=== PATIENT | female | born 1960 | race Caucasian/White ===

== ENCOUNTER 2017-10-09 21:53 | Inpatient (IN) | payer MEDICAID ==
[~2017-10-09] VITALS: Ht 157.5 cm; Wt 63.0 kg
[2017-10-09 21:55] VITALS: BP 125/79
--- NOTE | 2017-10-09 22:00 | NUR ---
TO LOBBY AMB, VS STABLE A/W FOR BED, EUGENIA NOTED
--- NOTE | 2017-10-10 03:11 | NUR ---
Patient ambulated to OF. RN evaluating patient.
--- NOTE | 2017-10-10 03:35 | NUR ---
PATIENT AMBULATED TO BED 10
[2017-10-10] MEDS ORDERED: ONDANSETRON 4 MG/2 ML VIAL IVP ONE (03:55)
--- NOTE | 2017-10-10 04:10 | NUR ---
56Y/F PRESENTS TO ER PATIENT PRESENTS TO ED WITH ABD PAIN . PT STATES SHE HAS HAD PAIN X3 YEARS . SKIN IS PINK/WARM/DRY; AAOX4 WITH EVEN AND STEADY GAIT; LUNGS CLEAR BL; HR EVEN AND REGULAR; PT DENIES ANY FEVER, CP, SOB; PATIENT STATES PAIN OF 10/10 AT THIS TIME; VSS; PATIENT POSITIONED FOR COMFORT; HOB ELEVATED; BEDRAILS UP X2; BED DOWN. ER MD MADE AWARE OF PT STATUS.
[2017-10-10 04:24] LABS: BASOPHILS # (AUTO) 0.1 K/uL (0.00-0.22); BASOPHILS % (AUTO) 1.3 % (0.0-2.0); EOSINOPHILS # (AUTO) 0.1 K/uL (0-0.4); EOSINOPHILS % (AUTO) 0.7 % (0.0-4.0); HEMATOCRIT 38.5 % (36-48); HEMOGLOBIN 12.9 g/dL (12.0-16.0); LYMPHOCYTES # (AUTO) 0.7 K/uL (2.5-16.5); LYMPHOCYTES % (AUTO) 9.3 % (20.5-51.1); MEAN CORPUSCULAR HEMOGLOBIN 31 pg (27-31); MEAN CORPUSCULAR HGB CONC 34 g/dL (33-37); MEAN CORPUSCULAR VOLUME 91 fL (80-94); MONOCYTES # (AUTO) 0.3 K/uL (0.8-1.0); MONOCYTES % (AUTO) 4.3 % (1.7-9.3); NEUTROPHILS # (AUTO) 6.8 K/uL (1.8-7.7); PLATELET COUNT (AUTO) 129 K/uL (140-450); RED BLOOD CELL COUNT(AUTO) 4.23 MIL/uL (4.20-5.40); RED CELL DISTRIBUTION WIDTH 12.5 % (11.6-13.7); WHITE BLOOD COUNT (AUTO) 7.9 K/uL (4.8-10.8)
[2017-10-10 04:27] LABS: APPEARANCE,URINE CLOUDY (CLEAR); BILIRUBIN,URINE NEGATIVE (NEGATIVE); BLOOD, URINE NEGATIVE (NEGATIVE); COLOR,URINE YELLOW (YELLOW); LEUKOCYTE ESTERASE ,URINE NEGATIVE (NEGATIVE); NITRITE, URINE POSITIVE (NEGATIVE); PH,URINE 8.5 (5.0-9.0); UGLUCOSE NEGATIVE (NEGATIVE)
[2017-10-10 04:40] LABS: RBC,URINE 0-5 (RARE) /HPF (0-5)
[2017-10-10 04:41] LABS: CARBON DIOXIDE 25.1 mmol/L (21-32); CREATININE 0.8 mg/dL (0.6-1.3); POTASSIUM 4.1 mmol/L (3.5-5.1)
[2017-10-10 04:46] LABS: ALBUMIN 3.7 g/dL (3.4-5.0); NEUTROPHILS % (AUTO) 84.4 % (42.2-75.2); TOTAL BILIRUBIN 0.4 mg/dL (0.0-1.0)
--- NOTE | 2017-10-10 06:10 | NUR ---
PT SLEEPING IN BED, COMFORT NEEDS MET, WILL CONTINUE TO MONITOR.
--- NOTE | 2017-10-10 07:05 | NUR ---
PT APPEARS TO BE RESTING COMFORTABLY IN BED; RR EVEN/UNLABORED; POSITIONED FOR COMFORT; WILL CONTINUE TO MONITOR.
[2017-10-10] MEDS ORDERED: ACETAMINOPHEN 325 MG TAB PO PRN (07:20)
--- NOTE | 2017-10-10 08:20 | NUR ---
THIS 56 YEARS OLD FEMALE RECEIVED FROM ER WITH THE DIAGNOSIS OF UTI, POSSIBLE CHOLECYSTITIS. RECEIVED REPORT FROM ER NURSE TREV. PT A/O X4. ABLE TO MAKE NEEDS KNOWN. NO ACUTE DISTRESS NOTED. ABLE TO AMBULATE AND USE BEDSIDE COMMODE. SKIN DRY AND WARM TO TOUCH. LUNGS SOUND CLEAR ON AUSCULTATION. RIGHT FOREARM 20 G INTACT. BOWEL SOUND PRESENT ON ALL FOUR QUADRANTS. SKIN INTACT.CALL LIGHT WITHIN REACH, BED IN LOW POSITION, LOCKED. WILL CONTINUE TO MOITOR.
--- NOTE | 2017-10-10 08:20 | NUR ---
Patient will be admitted to care of DR. BHAKTA. Admited to ICU (TELE HOLD). Will go to room ICU 3. Belongings list completed. Report to FRANCES JONES AT BEDSIDE.
[2017-10-10 08:30] VITALS: BP 119/67
--- NOTE | 2017-10-10 08:40 | NUR ---
PT HAS CINTRON $378.03 ON ADMISSION. [facility]. PT WANTS TO WAIT TILL HER DAUGHTER SAMRA COMES TO GIVE THE CINTRON. PT REFUSED TO KEEP UNDER HOSPITAL SAFETY.
[2017-10-10 08:43] LABS: CHOL/HDL RATIO 2.3 (1-4.5); FREE T4 (FREE THYROXINE) 0.82 ng/dL (0.76-1.46); MAGNESIUM 2.1 mg/dL (1.8-2.4); PHOSPHORUS 4.4 mg/dL (2.5-4.9); THYROID STIMULATING HORMONE 2.04 uIU/mL (0.34-3.74)
[2017-10-10] MEDS ORDERED: LACTOBACILLUS RHAMNOSUS GG 1 EACH CAP PO SCH (09:09)
[2017-10-10] MEDS: NACL 0.9% 1,000 ML IV SCH ×2 (09:22→22:06)
--- NOTE | 2017-10-10 09:30 | NUR ---
CINTRON $378.03 HANDED TO DAUGHTER SAMRA.
[2017-10-10] MEDS: PANTOPRAZOLE 40 MG INJ VIAL IVP SCH (09:40)
[2017-10-10] MEDS: DOCUSATE SODIUM 100 MG GELCAP PO SCH ×2 (09:40→20:07)
--- NOTE | 2017-10-10 10:30 | NUR ---
PT RESTING IN BED COMFORTABLY. NO CHANGE IN LOC. FAMILY AT BED SIDE. WILL CONTINUE TO MONITOR.
[2017-10-10 12:00] VITALS: BP 118/56
--- NOTE | 2017-10-10 12:13 | NUR ---
PT RESTING IN BED COMFORTABLY. NO CHANGE IN LOC. WILL CONTINUE TO MONITOR.
--- NOTE | 2017-10-10 12:37 | NUR ---
PT ON NPO PER DR. BONILLA. PT MADE AWARE.
[2017-10-10] MEDS: metroNIDAZOLE 500 MG/NS PREMIX 100 ML IV SCH ×2 (13:39→20:04)
[2017-10-10] MEDS: LACTOBACILLUS RHAMNOSUS GG 1 EACH CAP PO SCH ×2 (13:40→16:56)
--- NOTE | 2017-10-10 13:52 | NUR ---
DR. BHAKTA AND DR. OVALLE IN TO SEE PT. WILL FOLLOW UP ON ORDER.
--- NOTE | 2017-10-10 15:25 | NUR ---
DR BONILLA IN TO SEE PT. FAMILY AT BED SIDE. WILL FOLLOW UP ON ORDER.
[2017-10-10 16:00] VITALS: BP 114/77
--- NOTE | 2017-10-10 16:37 | NUR ---
PT RESTING IN BED COMFORTABLY. NO ACUTE DISTRESS. NO CHANGE IN LOC. ABLE TO VERBALIZE NEEDS. SR ON MONITOR. CALL LIGHT ANSWERED PROMPTLY. ASSISTED NEEDED. WILL CONTINUE TO MONITOR.
--- NOTE | 2017-10-10 18:15 | NUR ---
PT SCHEDULED FOR SURGERY TOMORROW MORNING AT 0800 AM. CALLED DAUGHTER SAMRA MADE AWARE ABOUT SURGERY TIME.
--- NOTE | 2017-10-10 18:20 | NUR ---
PT RESTING IN BED COMFORTABLY. NO CHANGE IN LOC. WILL CONTINUE TO MONITOR.
--- NOTE | 2017-10-10 19:20 | NUR ---
REPORT GIVEN TO NOC SHIFT RN FOR CONTINUE OF CARE. PT ON STABLE CONDITION.
--- NOTE | 2017-10-10 19:25 | NUR ---
RECEIVED REPORT FROM MORNING RN. VS STABLE AT THIS TIME. AFEBRILE. ALERT AND ORIENTED. ABLE TO COMMUNICATE NEEDS. PERRLA. LUNG SOUNDS CLEAR. NO SOB NOTED. NO SIGNS OF DISTRESS. S1+S2 HEARD. DENIES CHEST PAIN. PT FINISHED DINNER. WILL BE NPO AFTER MIDNIGHT. DENIES ABDOMINAL PAIN. NO NAUSEA OR VOMITING NOTED. BOWEL SOUNDS ACTIVE IN ALL QUADRANTS. PT HAS NO TROUBLE MOVING EXTREMITIES. PT HAS PERIPHERAL IV LINE ON RIGHT AC 20G. IV LINE PATENT AND ASYMPTOMATIC. CALL LIGHT WITHIN REACH. BED AT LOW POSITION. ALL SAFETY PRECAUTIONS IN PLACE. WILL CONTINUE TO MONITOR PT.
[2017-10-10 20:00] VITALS: BP 98/51
--- NOTE | 2017-10-10 20:10 | NUR ---
SCHEDULED MEDICATIONS ADMINISTERED. PT ABLE TO SWALLOW MEDICATION. IV LINE PATENT AND ASYMPTOMATIC. NO CHANGE IN CONDITION AT THIS TIME. VS STABLE. ALL SAFETY PRECAUTIONS IN PLACE. WILL CONTINUE TO MONITOR PT.
--- NOTE | 2017-10-10 21:45 | NUR ---
TRANSFERRED PT TO TELE UNIT. PT AWARE OF TRANSFER. VS STABLE. NO CHANGE IN CONDITION. RIGHT AC PERIPHERAL IV PATENT AND ASYMPTOMATIC. SR ON MONITOR. ALL PT BELONGINGS WERE TRANSFERRED WITH PT. NO C/O PAIN, SOB, N/V. PT ABLE TO WALK WITH ASSISTANCE TO BED.
--- NOTE | 2017-10-10 22:15 | NUR ---
CONTACTED PT NEXT OF KIN TO NOTIFY REGARDING TRANSFER TO TELE UNIT. CALLED SAMRA FISHER, NO ANSWER AND LEFT A VOICEMAIL. ALS CONTACTED LUIS FISHER AND INFORMED HER REGARDING TRANSFER.
--- NOTE | 2017-10-10 22:20 | NUR ---
RECEIVED FROM ICU PT. PER NANY AWAKE AND ALERT. NO SOB. NO COMPLAINTS DONE AT THIS TIME. ORIENTED TO CALL LIGHT USE FOR ANY HELP SHE MAY NEED OR IF IN PAIN. IVF SITE INTACT AND NO INFILTRATION NOTED.
[2017-10-11] VITALS (9 sets, daily range): BP systolic 103–120; BP diastolic 57–74
--- NOTE | 2017-10-11 01:37 | NUR ---
PT. SLEEPING AT THIS TIME. BLE TO VERBALIZE NEEDS WELL. NO SOB. DENIES PAIN AT THIS TIME.
[2017-10-11] MEDS: NACL 0.9% 1,000 ML IV SCH (02:52)
--- NOTE | 2017-10-11 02:55 | NUR ---
BEEN NPO SINCE SHE WAS TRANSFERRED. AWARE OF NPO STATUS. A/O X 4. CALL LIGHT WITH IN REACH.
--- NOTE | 2017-10-11 04:00 | NUR ---
ASSISTED TO RESTROOM TO GO VOID. INDEPENDENT. ROM X 4. WITH WEAKNESS RT PT. CAME FROM ICU AND WAS ALWAYS IN BED. REMINDED NPO. "SI".
[2017-10-11] MEDS: ONDANSETRON 4 MG/2 ML VIAL IVP PRN (04:20)
[2017-10-11] MEDS: metroNIDAZOLE 500 MG/NS PREMIX 100 ML IV SCH ×3 (04:20→21:44)
--- NOTE | 2017-10-11 06:23 | NUR ---
SLEEPING. NO COMPLAINTS . TELEMETRY MONITORING. REMINDED NPO STATUS. TELEMETRY MONITORING.
--- NOTE | 2017-10-11 06:44 | NUR ---
PATIENT HAS BEEN SCREENED AND CATEGORIZED LOW NUTRITION RISK. PATIENT WILL BE SEEN WITHIN 7 DAYS OF ADMISSION. 10/17/17 AIDEN EISENBERG MS, RDN
--- NOTE | 2017-10-11 07:30 | NUR ---
ENDORSEMENT RECEIVED FROM SALES REPRESENTATIVE TRAINEE NURSE. PATIENT IS AWAKE, ALERT. RESPIRATION EVEN, UNLABOR. SKIN DRY AND WARM. IV PATENT AND INTACT. DENIED PAIN AT THIS TIME. CHLOHEXIDINE BATH WAS GIVEN PRE OP. CALL LIGHT WITHIN REACH
--- NOTE | 2017-10-11 07:41 | NUR ---
ENDORSED TO THE NEXT RN FOR CONTINUITY OF CARE. PT. AWAKE AND WENT BM AT THIS TIME.
[2017-10-11] MEDS ORDERED: BUPIVACAINE-MPF/EPI 0.25% 10 ML VIAL INJ ONE ×2 (07:47→07:56)
--- NOTE | 2017-10-11 08:10 | NUR ---
PATIENT WAS TRANSFERRED OUT TO OR FOR PROCEDURE, ACCOMPANY BY 2 RNS
[2017-10-11] MEDS ORDERED: MIDAZOLAM 2 MG/2 ML VIAL ONE (08:26)
[2017-10-11] MEDS ORDERED: fentaNYL 0.05 MG/ML VIAL ONE (08:27)
[2017-10-11] MEDS ORDERED: MEPERIDINE 50 MG/ML SYR ONE (08:27)
[2017-10-11] MEDS ORDERED: SUCCINYLCHOLINE CHLORIDE 200 MG/10 ML VIAL IVP ONE (08:30)
[2017-10-11] MEDS ORDERED: DEXAMETHASONE 4 MG/ML VIAL ONE (08:30)
[2017-10-11] MEDS ORDERED: PROPOFOL 200 MG/20 ML VIAL IV ONE (08:30)
[2017-10-11] MEDS ORDERED: ROCURONIUM 50 MG/5 ML VIAL IV ONE (08:30)
[2017-10-11] MEDS ORDERED: ONDANSETRON 4 MG/2 ML VIAL ONE (08:30)
[2017-10-11] MEDS ORDERED: NEOSTIGMINE 1:1000 10 MG/10 ML VIAL ONE (08:30)
[2017-10-11] MEDS ORDERED: SEVOFLURANE 250 ML BTL INH ONE (08:30)
[2017-10-11 08:41] LABS: BASOPHILS # (AUTO) 0.2 K/uL (0.00-0.22); EOSINOPHILS # (AUTO) 0.1 K/uL (0-0.4); EOSINOPHILS % (AUTO) 1.2 % (0.0-4.0); HEMATOCRIT 39.4 % (36-48); HEMOGLOBIN 13.2 g/dL (12.0-16.0); LYMPHOCYTES # (AUTO) 1.1 K/uL (2.5-16.5); LYMPHOCYTES % (AUTO) 20.8 % (20.5-51.1); MEAN CORPUSCULAR HEMOGLOBIN 31 pg (27-31); MEAN CORPUSCULAR HGB CONC 33 g/dL (33-37); MEAN CORPUSCULAR VOLUME 92 fL (80-94); MONOCYTES # (AUTO) 0.3 K/uL (0.8-1.0); MONOCYTES % (AUTO) 5.5 % (1.7-9.3); NEUTROPHILS # (AUTO) 3.3 K/uL (1.8-7.7); NEUTROPHILS % (AUTO) 69.5 % (42.2-75.2); PLATELET COUNT (AUTO) 123 K/uL (140-450); RED BLOOD CELL COUNT(AUTO) 4.28 MIL/uL (4.20-5.40); RED CELL DISTRIBUTION WIDTH 12.6 % (11.6-13.7); WHITE BLOOD COUNT (AUTO) 5.1 K/uL (4.8-10.8)
[2017-10-11] MEDS: DOCUSATE SODIUM 100 MG GELCAP PO SCH ×2 (09:00→21:44)
[2017-10-11] MEDS: PANTOPRAZOLE 40 MG INJ VIAL IVP SCH (09:00)
[2017-10-11] MEDS: LACTOBACILLUS RHAMNOSUS GG 1 EACH CAP PO SCH ×3 (09:00→16:20)
[2017-10-11] MEDS ORDERED: LACTATED RINGERS 1,000 ML IV SCH (09:09)
[2017-10-11] MEDS ORDERED: HYDROmorphone PFS 2 MG/ML SYR IVP PRN (09:10)
[2017-10-11] MEDS ORDERED: diphenhydrAMINE 50 MG/ML VIAL IVP PRN (09:10)
[2017-10-11] MEDS ORDERED: MEPERIDINE 25 MG/ML SYR IVP PRN (09:10)
[2017-10-11] MEDS ORDERED: ONDANSETRON 4 MG/2 ML VIAL IVP PRN (09:10)
[2017-10-11 09:34] LABS: PHOSPHORUS 3.3 mg/dL (2.5-4.9)
[2017-10-11 09:37] LABS: ANION GAP 11.5 (8-16); CARBON DIOXIDE 25.2 mmol/L (21-32); CREATININE 0.7 mg/dL (0.6-1.3); POTASSIUM 3.7 mmol/L (3.5-5.1)
[2017-10-11] MEDS ORDERED: THROMBIN KIT 20 MU VIAL TP ONE (09:37)
[2017-10-11] MEDS ORDERED: MEPERIDINE 25 MG/ML SYR ONE (10:18)
[2017-10-11] MEDS: DEXT 5% / NACL 0.45% 1,000 ML IV SCH ×2 (12:08→21:43)
[2017-10-11] MEDS: HYDROcodone/APAP 7.5/325 MG 1 TAB PO PRN (12:09)
--- NOTE | 2017-10-11 12:50 | NUR ---
PATIENT IS TRANSFERRED BACK TO THE UNIT. RESPIRATION EVEN, UNLABOR. NO DISTRESS NOTED AT THIS TIME. REPORT WAS GIVEN AT BEDSIDE. VS WAS TAKEN. CALL LIGHT WITHIN REACH. WILL CONTINUE TO MONITOR
--- NOTE | 2017-10-11 15:00 | NUR ---
PATIENT IS AWAKE, ALERT. RESPIRATION EVEN, UNLABOR. DENIED PAIN AT THIS TIME. FAMILY AT BEDSIDE. CALL LIGHT WITHIN REACH
[2017-10-11] MEDS: HYDROmorphone PFS 2 MG/ML SYR IVP PRN ×2 (15:56→20:33)
--- NOTE | 2017-10-11 17:51 | NUR ---
PATIENT IS SLEEPING COMFORTABLY. RESPIRATION EVEN, UNLABOR. NO DISTRESS NOTED AT THIS TIME. IV PATENT AND INTACT. CALL LIGHT WITHIN REACH
--- NOTE | 2017-10-11 19:22 | NUR ---
ENDORSEMENT GIVEN TO THE BLASTING GANG MINER NURSE. PATIENT IS STABLE AT THIS TIME
--- NOTE | 2017-10-11 20:35 | NUR ---
ADMINISTERED DILAUDID FOR PAIN ORDERED, PT TOLERATED WELL. OFFERED PT TO HELP HER WALK ONCE MEDICATION TOOK EFFECT, PT STATED SHE WOULD USE CALL LIGHT WHEN SHE IS READY.
--- NOTE | 2017-10-11 21:45 | NUR ---
ADMINISTERED SCHEDULED MEDICATIONS ORDERED, PT TOLERATED WELL. ASKED PT IF SHE WAS READY TO AMBULATE AROUND THE HALLS, PT STATED "MAYBE A LITTLE BIT LATER, I'M STILL IN A LOT OF PAIN." EDUCTED PT ON THE IMPORTANCE OF AMBULATING SOON AFTER SURGERY, AND THE RISKS OF NOT DOING SO. PT VERBALIZED UNDERSTANDING. PT DECIDED SHE IS STILL NOT READY TO WALK.
[2017-10-12] VITALS: BP 107/60
[2017-10-12] MEDS: ONDANSETRON 4 MG/2 ML VIAL IVP PRN ×2 (00:47→09:04)
[2017-10-12] MEDS: SIMETHICONE 80 MG TAB.CHEW PO PRN ×2 (00:47→20:57)
--- NOTE | 2017-10-12 00:50 | NUR ---
PT C/O NAUSEA AND MODERATE SHOULDER PAIN. MEDICATED WITH ZOFRAN PER ORDER FOR NAUSEA, AND MYLICON TO HELP GET RID OF GAS. PT IN STABLE CONDITION, NO SIGNS OF DISTRESS NOTED. BED IN LOW POSITION, CALL LIGHT WITHIN REACH. WILL CONTINUE TO MONITOR.
--- NOTE | 2017-10-12 01:45 | NUR ---
PT STATES SHE IS FEELING BETTER, NO MORE NAUSEA OR SHOULDER PAIN.
--- NOTE | 2017-10-12 03:24 | NUR ---
PT AMBULATED AROUND HALLS TWICE, TOLERATED WELL UNTIL SHE FELT DIZZY SO WE WENT BACK TO HER ROOM. PT IN STABLE CONDITION, NO SIGNS OF DISTRESS NOTED. BED IN LOW POSITION, CALL LIGHT WITHIN REACH. WILL CONTINUE TO MONITOR.
[2017-10-12] MEDS: HYDROmorphone PFS 2 MG/ML SYR IVP PRN (03:27)
--- NOTE | 2017-10-12 03:29 | NUR ---
MEDICATED WITH DILAUDID FOR 9/10 ABDOMINAL PAIN, PT TOLERATED WELL.
[2017-10-12] MEDS: metroNIDAZOLE 500 MG/NS PREMIX 100 ML IV SCH ×2 (05:12→13:09)
--- NOTE | 2017-10-12 05:12 | NUR ---
ADMINISTERED SCHEDULED MEDICATION ORDERED, PT TOLERATING WELL. PT IN STABLE CONDITION, NO SIGNS OF DISTRESS NOTED. BED IN LOW POSITION, CALL LIGHT WITHIN REACH. WILL CONTINUE TO MONITOR.
[2017-10-12] MEDS: DEXT 5% / NACL 0.45% 1,000 ML IV SCH (07:01)
--- NOTE | 2017-10-12 07:15 | NUR ---
RECEIVED PATIENT REPORT. PATIENT AWAKE IN BED. NO S/S OF DISTRESS NOTED. PATIENT C/O ABD PAIN AND NAUSEA. WILL MEDICATED. 4 INCISIONS NOTED TO THE ABD. INCISIONS CLEAN DRY AND INTACT. BED LOWERED WITH CALL LIGHT WITHIN REACH. WILL CONTINUE TO MONITOR
[2017-10-12 07:19] LABS: ANION GAP 9.5 (8-16); CARBON DIOXIDE 26.1 mmol/L (21-32); CREATININE 0.6 mg/dL (0.6-1.3); POTASSIUM 3.6 mmol/L (3.5-5.1)
[2017-10-12 07:20] LABS: BASOPHILS # (AUTO) 0.2 K/uL (0.00-0.22); BASOPHILS % (AUTO) 1.6 % (0.0-2.0); EOSINOPHILS # (AUTO) 0.1 K/uL (0-0.4); EOSINOPHILS % (AUTO) 0.7 % (0.0-4.0); HEMATOCRIT 34.7 % (36-48); HEMOGLOBIN 11.6 g/dL (12.0-16.0); LYMPHOCYTES # (AUTO) 1.1 K/uL (2.5-16.5); LYMPHOCYTES % (AUTO) 11.5 % (20.5-51.1); MEAN CORPUSCULAR HEMOGLOBIN 31 pg (27-31); MEAN CORPUSCULAR HGB CONC 34 g/dL (33-37); MEAN CORPUSCULAR VOLUME 92 fL (80-94); MONOCYTES # (AUTO) 0.8 K/uL (0.8-1.0); MONOCYTES % (AUTO) 7.8 % (1.7-9.3); NEUTROPHILS # (AUTO) 7.5 K/uL (1.8-7.7); NEUTROPHILS % (AUTO) 78.4 % (42.2-75.2); PLATELET COUNT (AUTO) 117 K/uL (140-450); RED BLOOD CELL COUNT(AUTO) 3.75 MIL/uL (4.20-5.40); RED CELL DISTRIBUTION WIDTH 12.4 % (11.6-13.7); WHITE BLOOD COUNT (AUTO) 9.7 K/uL (4.8-10.8)
--- NOTE | 2017-10-12 07:23 | NUR ---
ENDORSED PT TO DAY SHIFT RN, IN STABLE CONDITION, FOR CONTINUITY OF CARE.
[2017-10-12 07:29] LABS: ANION GAP 10.5 (8-16); CARBON DIOXIDE 25.1 mmol/L (21-32); CREATININE 0.6 mg/dL (0.6-1.3); POTASSIUM 3.6 mmol/L (3.5-5.1); TOTAL BILIRUBIN 0.6 mg/dL (0.0-1.0)
[2017-10-12 07:33] LABS: MAGNESIUM 1.9 mg/dL (1.8-2.4); PHOSPHORUS 3.5 mg/dL (2.5-4.9)
[2017-10-12 08:00] VITALS: BP 107/69
[2017-10-12 08:32] LABS: ALBUMIN 3.1 g/dL (3.4-5.0); BILIRUBIN,DIRECT 0.1 mg/dL (0.0-0.3); TOTAL BILIRUBIN 0.6 mg/dL (0.0-1.0)
[2017-10-12] MEDS: HYDROcodone/APAP 7.5/325 MG 1 TAB PO PRN ×3 (09:03→20:44)
[2017-10-12] MEDS: DOCUSATE SODIUM 100 MG GELCAP PO SCH ×2 (09:03→20:44)
[2017-10-12] MEDS: LACTOBACILLUS RHAMNOSUS GG 1 EACH CAP PO SCH ×3 (09:04→17:20)
[2017-10-12] MEDS: PANTOPRAZOLE 40 MG INJ VIAL IVP SCH (09:04)
--- NOTE | 2017-10-12 11:30 | NUR ---
PATIENT AMBULATED TO THE BATHROOM TO VOID. NO S/S OF DISTRESS NOTED
[2017-10-12 16:00] VITALS: BP 105/63
--- NOTE | 2017-10-12 16:00 | NUR ---
PATIENT SEEN BY DR BONILLA
[2017-10-12] MEDS: NACL 0.9% 1,000 ML IV SCH (17:20)
--- NOTE | 2017-10-12 19:15 | NUR ---
RECEIVED REPORT AT BEDSIDE FROM DAY SHIFT RN. PT A/OX4 ON ROOM AIR. PT HAS A 20G IV TO RIGHT AC, INFUSING NS@75ML/HR. SKIN INTACT. SAFETY PRECAUTIONS IN PLACE. UPDATED BOARD. VITAL SIGNS WITHIN NORMAL LIMITS. PT IN STABLE CONDITION, NO SIGNS OF DISTRESS NOTED. BED IN LOW POSITION, CALL LIGHT WITHIN REACH. WILL CONTINUE TO MONITOR.
--- NOTE | 2017-10-12 20:58 | NUR ---
ADMINISTERED SCHEDULED MEDICATIONS ORDERED ALONG WITH NORCO FOR PAIN, AND MYLICON FOR GAS. PT TOLERATED WELL.
[2017-10-13] VITALS: BP 100/58
--- NOTE | 2017-10-13 | NUR ---
VITAL SIGNS WITHIN NORMAL LIMITS. PT IN STABLE CONDITION, NO SIGNS OF DISTRESS NOTED. BED IN LOW POSITION, CALL LIGHT WITHIN REACH. WILL CONTINUE TO MONITOR.
[2017-10-13] MEDS: NACL 0.9% 1,000 ML IV SCH (05:21)
[2017-10-13] MEDS: SIMETHICONE 80 MG TAB.CHEW PO PRN (06:27)
--- NOTE | 2017-10-13 06:27 | NUR ---
ADMINISTERED MYLICON FOR C/O GAS PER PT. PT TOLERATED WELL.
--- NOTE | 2017-10-13 07:05 | NUR ---
ENDORSED PT TO DAY SHIFT RN FOR CONTINUITY OF CARE. PT IN STABLE CONDITION.
--- NOTE | 2017-10-13 07:10 | NUR ---
RECEIVED PATIENT REPORT AT BEDSIDE FROM NIGHT NURSE. PATIENT IS AAOX4 AND SHOWS NO S/S OF ACUTE DISTRESS ON ROOM AIR. IV NOTED ON THE R AC WITH IVF'S INFUSING WELL. NOTED 4 ABD INCISIONS YG WITH NO S/S OF INFECTIONS. PATIENT DENIES PAIN AT THIS TIME. POC WAS DISCUSSED WITH PATIENT AND SHE VERBALIZED UNDERSTANDING. THE BED IS IN LOW POSITION WITH CALL LIGHT WITHIN REACH.
[2017-10-13 08:00] VITALS: BP 108/59
[2017-10-13 08:15] LABS: BASOPHILS # (AUTO) 0.2 K/uL (0.00-0.22); EOSINOPHILS # (AUTO) 0.2 K/uL (0-0.4); EOSINOPHILS % (AUTO) 3.3 % (0.0-4.0); HEMATOCRIT 35.8 % (36-48); HEMOGLOBIN 11.8 g/dL (12.0-16.0); LYMPHOCYTES # (AUTO) 1.2 K/uL (2.5-16.5); LYMPHOCYTES % (AUTO) 21.3 % (20.5-51.1); MEAN CORPUSCULAR HEMOGLOBIN 31 pg (27-31); MEAN CORPUSCULAR HGB CONC 33 g/dL (33-37); MEAN CORPUSCULAR VOLUME 93 fL (80-94); MONOCYTES # (AUTO) 0.4 K/uL (0.8-1.0); MONOCYTES % (AUTO) 7.9 % (1.7-9.3); NEUTROPHILS # (AUTO) 3.5 K/uL (1.8-7.7); NEUTROPHILS % (AUTO) 63.5 % (42.2-75.2); PLATELET COUNT (AUTO) 103 K/uL (140-450); RED BLOOD CELL COUNT(AUTO) 3.87 MIL/uL (4.20-5.40); RED CELL DISTRIBUTION WIDTH 12.4 % (11.6-13.7); WHITE BLOOD COUNT (AUTO) 5.5 K/uL (4.8-10.8)
[2017-10-13] MEDS: DOCUSATE SODIUM 100 MG GELCAP PO SCH (09:45)
[2017-10-13] MEDS: HYDROcodone/APAP 7.5/325 MG 1 TAB PO PRN (09:46)
[2017-10-13] MEDS: PANTOPRAZOLE 40 MG INJ VIAL IVP SCH (09:46)
[2017-10-13] MEDS: LACTOBACILLUS RHAMNOSUS GG 1 EACH CAP PO SCH ×2 (09:46→13:33)
--- NOTE | 2017-10-13 09:53 | NUR ---
ADMINISTERED SCHEDULED MEDICATIONS EXCEPT FOR PROTONIX 40 MG IVP. PATIENT'S IV WAS INFILTRATED AND WAS DISCONTINUED WITH CANNULA INTACT. WILL ATTEMPT NEW IV FOR SCHEDULED MEDICATION. PATIENT C/O 6/10 ABD PAIN AT SURGICAL SITE. WILL REASSESS PAIN IN ONE HR.
--- NOTE | 2017-10-13 10:00 | NUR ---
NEW IV ON THE LFT FA WITH IVF'S INFUSING WELL.
--- NOTE | 2017-10-13 10:45 | NUR ---
ADMINISTERED SCHEDULED MEDICATIONS. IV ABX INFUSING WELL.
[2017-10-13] MEDS ORDERED: DOCU-299 PO (10:59)
[2017-10-13] MEDS ORDERED: ONDA4TAB PO (10:59)
[2017-10-13] MEDS ORDERED: ACET-2869 PO (10:59)
--- NOTE | 2017-10-13 12:15 | NUR ---
PATIENT EATING LUNCH AND TOLERATING WELL. ALL NEEDS MET AT THIS TIME.
[2017-10-13] MEDS ORDERED: INFLUENZA VIRUS VACCINE QUAD 0.5 ML SYR IMVAC SCH (13:50)
[2017-10-13] MEDS ORDERED: PNEUMOCOCCAL VACCINE 23 MCG/0.5 ML VIAL IMVAC SCH (13:50)
--- NOTE | 2017-10-13 15:14 | NUR ---
PATIENT HAS BEEN DISCHARGED. ALL PAPERWORK SIGNED AND DISCHARGE INSTRUCTIONS GIVEN. ALL QUESTIONS ANSWERED. PATIENT VERBALIZED UNDERSTANDING OF CONTINUITY OF CARE. ALL BELONGINGS AND PRESCRIPTIONS WITH PATIENT. IV DISCONTINUED WITH CANNULA INTACT. WRISTBANDS REMOVED. PATIENT LEFT UNIT IN STABLE CONDITION WITH FAMILY PRESENT AT SIDE.
== END 2017-10-13 15:14 | disposition home or self-care (01) | DRG 263 ==
LOC: MED 21:53 → EDBD 10-10 07:24 → MTU 10-10 07:24 → MIC 10-10 08:02 → MTU 10-10 21:45
PROVIDERS: ADMIT Student in an Organized Health Care Education/Training Program; ATTEND Student in an Organized Health Care Education/Training Program
PROC: 0FT44ZZ Resection of Gallbladder, Percutaneous Endoscopic Approach (ICD-10-PCS; principal; 2017-10-11 08:00)
PROC: 3E0234Z Introduction of Serum, Toxoid and Vaccine into Muscle, Percutaneous Approach (ICD-10-PCS; 2017-10-13)
PROC: 3E0234Z Introduction of Serum, Toxoid and Vaccine into Muscle, Percutaneous Approach (ICD-10-PCS; 2017-10-13)
DX: K80.00 Calculus of gallbladder with acute cholecystitis without obstruction (principal); N17.0 Acute kidney failure with tubular necrosis; N39.0 Urinary tract infection, site not specified; D69.6 Thrombocytopenia, unspecified; E66.3 Overweight; E44.0 Moderate protein-calorie malnutrition; R73.03 Prediabetes; B96.20 Unspecified Escherichia coli [E. coli] as the cause of diseases classified elsewhere; Z68.25 Body mass index [BMI] 25.0-25.9, adult; Z23 Encounter for immunization; Z72.89 Other problems related to lifestyle
CPT/HCPCS: 36415; 71010; 76705; 80048; 80053; 80076; 81001; 82150; 83036; 83605; 83690; 83735; 83880; 84100; 84439; 84443; 84484; 85025; 85610; 85730; 86886; 86900; 86901; 87040; 87081; 87086; 87186; 90658; 90732; 96374; 99285; C9113; J0330; J0696; J1100; J1170; J2175; J2250; J2405; J2704; J2710; J3010; J3490; J7030; J7060; Q0092

== ENCOUNTER 2022-12-11 09:31 | Emergency (ER) | payer MEDICAID ==
[~2022-12-11] VITALS: Ht 154.9 cm; Wt 58.1 kg
[~2022-12-11 09:31] MED LIST: DOCU-299 PO; HYDR-5122 PO; ONDA4TAB PO
[2022-12-11 09:32] VITALS: BP 109/78
--- NOTE | 2022-12-11 09:39 | NUR ---
PT AMB TO BED 11.
--- NOTE | 2022-12-11 09:43 | NUR ---
62/F WALKED IN C/O LAC TO B/L HANDS S/P CAT BITE TODAY. LAC BLEEDING CONTROLLED WITH GAUZE. PT REPORTS CAT IS HER'S.
[2022-12-11] MEDS ORDERED: KETOROLAC 60 MG/2 ML VIAL IM ONE (09:50)
[2022-12-11] MEDS ORDERED: BACITRACIN OINT 500 UNITS/GM PKT TP ONE (09:50)
--- NOTE | 2022-12-11 10:10 | NUR ---
XR DONE AT BEDSIDE
--- NOTE | 2022-12-11 10:23 | NUR ---
WOUND DRESSING DONE WITH GAUZE TO RIGHT HAND AND COBAND. PT TOLERATED WELL.
[2022-12-11] MEDS ORDERED: ACET-8905 PO (10:30)
[2022-12-11] MEDS ORDERED: NAPR-1704 PO (10:30)
[2022-12-11] MEDS ORDERED: AMOX-999 PO (10:30)
== END 2022-12-11 10:35 | disposition home or self-care (01) ==
LOC: MED 09:31
DX: S61.431A Puncture wound without foreign body of right hand, initial encounter (principal); S61.432A Puncture wound without foreign body of left hand, initial encounter; S51.831A Puncture wound without foreign body of right forearm, initial encounter; Z90.49 Acquired absence of other specified parts of digestive tract; Z79.899 Other long term (current) drug therapy; Z79.2 Long term (current) use of antibiotics; Z79.1 Long term (current) use of non-steroidal anti-inflammatories (NSAID); Z79.891 Long term (current) use of opiate analgesic; W55.03XA Scratched by cat, initial encounter; Y93.89 Activity, other specified; Y92.89 Other specified places as the place of occurrence of the external cause; Y99.8 Other external cause status
CPT/HCPCS: 73090; 73130; 90471; 90715; 96372; 99284; J1885; Q0092

== ENCOUNTER 2022-12-15 15:19 | Inpatient (IN) | payer MEDICAID ==
[~2022-12-15] VITALS: Ht 157.5 cm; Wt 61.2 kg
[~2022-12-15 15:19] MED LIST changes: +ACET-8905 PO; +AMOX-999 PO; +NAPR-1704 PO
[2022-12-15 15:26] VITALS: BP 112/74
--- NOTE | 2022-12-15 15:30 | NUR ---
PT AMB TO BED 8
--- NOTE | 2022-12-15 15:37 | NUR ---
62YO FEMALE PT C/O R HAND PAIN X4DAYS. PT RECENTLY SEEN IN ER FOR CAT SCRATCH/LAC. HAND PRESENTS WITH OPEN LAC AND NEW ONSET OF SWELLING SINCE, NO DRAINAGE. RADIATION UP TO R WRIST. +NUMBING -LOSS OF SENSATION , CAP REFILL <3 THROUGHOUT. LIMITED ROM IN HAND AND WRIST DUE TO SWELLING/PAIN. STATES BEING COMPLIANT WITH ANTIBIOTICS GIVEN. DENIES N/V/D , FEVER OR CHILLS. PT AAOX4, ARM POSITIONED PER COMFORT. THAI SPEAKING HX:DENIES ROB
[2022-12-15] MEDS ORDERED: KETOROLAC 30 MG/ML VIAL IM ONE (16:05)
[2022-12-15] MEDS ORDERED: KETOROLAC 30 MG/ML VIAL IVP ONE (16:25)
[2022-12-15] MEDS ORDERED: AMPICILLIN/SULBACTAM 3 GM in NACL 0.9% 100 ML IV ONE (16:25)
[2022-12-15] MEDS ORDERED: AMPICILLIN/SULBACTAM 3 GM VIAL ONE ×2 (16:40→23:06)
--- NOTE | 2022-12-15 16:44 | NUR ---
pt swabbed for aorebic and covid(sandeep). handed to lab
[2022-12-15 16:56] LABS: BASOPHILS % (AUTO) 0.4 % (0.0-2.0); EOSINOPHILS # (AUTO) 0.2 K/uL (0-0.4); EOSINOPHILS % (AUTO) 1.9 % (0.0-4.0); HEMATOCRIT 37.8 % (36-48); HEMOGLOBIN 12.7 g/dL (12.0-16.0); LYMPHOCYTES # (AUTO) 1.6 K/uL (2.5-16.5); LYMPHOCYTES % (AUTO) 16.8 % (20.5-51.1); MEAN CORPUSCULAR HEMOGLOBIN 31 pg (27-31); MEAN CORPUSCULAR HGB CONC 34 g/dL (33-37); MEAN CORPUSCULAR VOLUME 91.6 fL (80-94); MONOCYTES # (AUTO) 0.9 K/uL (0.8-1.0); MONOCYTES % (AUTO) 9.8 % (1.7-9.3); NEUTROPHILS # (AUTO) 6.6 K/uL (1.8-7.7); NEUTROPHILS % (AUTO) 71.1 % (42.2-75.2); PLATELET COUNT (AUTO) 152 K/uL (140-450); RED BLOOD CELL COUNT(AUTO) 4.12 MIL/uL (4.20-5.40); RED CELL DISTRIBUTION WIDTH 13.7 % (11.6-13.7); WHITE BLOOD COUNT (AUTO) 9.3 K/uL (4.8-10.8)
[2022-12-15 17:12] LABS: ALBUMIN 3.9 g/dL (3.4-5.0); ANION GAP 14.9 (8-16); CARBON DIOXIDE 26.5 mmol/L (21-32); CREATININE 0.8 mg/dL (0.6-1.3); POTASSIUM 3.4 mmol/L (3.5-5.1); TOTAL BILIRUBIN 0.7 mg/dL (0.0-1.0)
--- NOTE | 2022-12-15 19:18 | NUR ---
REPORT GIVEN TO TIERRA DANIELS . TRANSFER OF CARE AT THIS TIME
--- NOTE | 2022-12-15 19:30 | NUR ---
Patient received on bed lying comfortably and awake. Alert and oriented x4. No acute distress. No complaints of pain or discomfort. Respirations even and unlabored.
--- NOTE | 2022-12-15 21:12 | NUR ---
Called [facility] to give report. Spoke to FRANCES Looney and stated to call back after 5 minutes.
--- NOTE | 2022-12-15 22:14 | NUR ---
Patient will be admitted to care of Dr. Rabago. Admited to [facility]. Will go to room 110B. Belongings list completed. Report to FRANCES Looney.
--- NOTE | 2022-12-15 22:25 | NUR ---
RECEIVED REPORT FROM ER NURSE FOR CONTINUITY OF CARE. PT IS AWAKE, ALERT AND ORIENTED X4, AMBULATORY, MALDIVIAN SPEAKING ONLY. FALSEWORK BUILDER CECILLE, ID NUMBER: [id number], HELPED WITH ADMISSION QUESTIONING. PT CURRENTLY ON ROOM AIR SATING WELL. PT HAS OPEN WOUND ON HER RIGHT HAND FROM A CAT BITE. HAND IS SWOLLEN AND MULTIPLE SCRATCHES WERE OBSERVED THROUGHOUT THE HAND AND ARM. IV SITE LOCATED AT LEFT AC 20 GAUGE, SALINE LOCK. ORIENTED PT TO ROOM, RESTROOM, AND CALL LIGHT CONTROLS. SAFETY MEASURES IN PLACE, CALL LIGHT WITHIN REACH, WILL CONTINUE TO MONITOR.
--- NOTE | 2022-12-15 22:30 | NUR ---
PATIENT PLAN OF CARE REVIEWED AND DISCUSSED WITH MARGARITA WAGNER.
[2022-12-15] MEDS: AMPICILLIN/SULBACTAM 3 GM in NACL 0.9% 100 ML IV SCH (23:16)
[2022-12-16] VITALS: BP 118/62
--- NOTE | 2022-12-16 04:12 | NUR ---
PT REPORTED A PAIN LEVEL OF 9/[address] CONTA[address] DENTON WHO APPROVED AN ORDER FOR MORPHINE 2MG IVP Q4H PRN.
[2022-12-16 04:20] VITALS: BP 105/62
[2022-12-16] MEDS ORDERED: AMPICILLIN/SULBACTAM 3 GM VIAL ONE (05:04)
[2022-12-16] MEDS: AMPICILLIN/SULBACTAM 3 GM in NACL 0.9% 100 ML IV SCH ×3 (05:18→18:06)
[2022-12-16] MEDS ORDERED: MORPHINE SULFATE 2 MG/ML SYR IVP PRN (06:25)
--- NOTE | 2022-12-16 07:15 | NUR ---
RECEIVED REPORT FROM NIGHT NURSE TOM FOR CONTINUITY OF CARE. INITIAL ASSESSMENT DONE. IVF INFUSING WELL. NOT IN ANY DISTRESS NOTED. CALL LIGHT KEPT WITHIN REACH. WILL CONTINUE TO MONITOR.
--- NOTE | 2022-12-16 07:27 | NUR ---
ENDORSED PT TO DAY SHIFT NURSE. PT IS STABLE AT THIS TIME.
--- NOTE | 2022-12-16 07:49 | NUR ---
LAB RESULT FOR POTASSIUM 3.4. NOTIFIED DR. DENTON, WITH NEW ORDER. K RIDER 40 MEQ X 1. NOTED AND CARRIED OUT.
[2022-12-16] MEDS ORDERED: POTASSIUM CHLORIDE 40 MEQ, LIDOCAINE 1% 25 MG in NACL 0.9% 250 ML IV ONE (07:50)
[2022-12-16 08:00] VITALS: BP 105/50
--- NOTE | 2022-12-16 08:20 | NUR ---
SEEN BY DR. MUHAMMAD. PER PT DOESN'T NEED SURGERY AT THIS TIME. RESUMED REGULAR DIET, NPO AFTER MIDNIGHT. CONT. IV ABT, ELEVATED RT EXTREMITIES BY GONSALVES'S TRACTION.
[2022-12-16] MEDS ORDERED: POTASSIUM CHLORIDE 20% 40 MEQ/15 ML UDC PO SCH (08:30)
--- NOTE | 2022-12-16 08:43 | NUR ---
SCHEDULED PO MEDICATIONS AND ONE TIME POTASSIUM LIQUID GIVEN. TOLERATING WELL.
[2022-12-16] MEDS: MORPHINE SULFATE 2 MG/ML SYR IVP PRN (08:54)
--- NOTE | 2022-12-16 08:54 | NUR ---
PRN MORPHINE IVP GIVEN BY ADZE FOR PAIN MANAGEMENT. TOLERATING WELL.
[2022-12-16] MEDS: NACL 0.9% 1,000 ML IV SCH ×2 (09:15→09:56)
[2022-12-16] MEDS ORDERED: ONDANSETRON 4 MG/2 ML VIAL IVP PRN (09:15)
--- NOTE | 2022-12-16 09:45 | NUR ---
MRSA SWAB COLLECTED.
--- NOTE | 2022-12-16 09:48 | NUR ---
PATIENT HAS BEEN SCREENED AND CATEGORIZED LOW NUTRITION RISK. PATIENT WILL BE SEEN WITHIN 7 DAYS OF ADMISSION. 12/22/22 REVIEWED BY FLORINA CHISHOLM RD
--- NOTE | 2022-12-16 10:11 | NUR ---
UA COLLECTED, SEND TO LAB. AWAITING FOR RESULT.
[2022-12-16 10:45] LABS: BASOPHILS % (AUTO) 0.7 % (0.0-2.0); EOSINOPHILS # (AUTO) 0.1 K/uL (0-0.4); HEMATOCRIT 35.5 % (36-48); LYMPHOCYTES # (AUTO) 0.7 K/uL (2.5-16.5); LYMPHOCYTES % (AUTO) 13.7 % (20.5-51.1); MEAN CORPUSCULAR HEMOGLOBIN 31 pg (27-31); MEAN CORPUSCULAR HGB CONC 34 g/dL (33-37); MEAN CORPUSCULAR VOLUME 91.1 fL (80-94); MONOCYTES # (AUTO) 0.4 K/uL (0.8-1.0); MONOCYTES % (AUTO) 7.2 % (1.7-9.3); NEUTROPHILS # (AUTO) 4.1 K/uL (1.8-7.7); NEUTROPHILS % (AUTO) 76.4 % (42.2-75.2); PLATELET COUNT (AUTO) 159 K/uL (140-450); RED CELL DISTRIBUTION WIDTH 13.7 % (11.6-13.7); WHITE BLOOD COUNT (AUTO) 5.4 K/uL (4.8-10.8)
[2022-12-16 11:03] LABS: ANION GAP 14.4 (8-16); CARBON DIOXIDE 24.1 mmol/L (21-32); CREATININE 0.7 mg/dL (0.6-1.3); POTASSIUM 4.5 mmol/L (3.5-5.1)
[2022-12-16 11:27] LABS: AMYLASE 36 U/L (25-115); CHOL/HDL RATIO 2.6 (1-4.5); FREE T4 (FREE THYROXINE) 1.78 ng/dL (0.76-1.46); HDL CHOLESTEROL 42 mg/dL (40-60); LDL (CALC) 56 mg/dL (60-100); LIPASE 105 U/L (73-393); MAGNESIUM 1.9 mg/dL (1.8-2.4); PHOSPHORUS 3.5 mg/dL (2.5-4.9); THYROID STIMULATING HORMONE 5.71 uIU/mL (0.34-3.74); TRIGLYCERIDES 67 mg/dL (30-150)
--- NOTE | 2022-12-16 11:30 | NUR ---
DC PLANNING ASSESSMENT COMPLETE PLEASE REFER TO ASSESSMENT FOR DETAILS PT IS A 62 YR OLD FEMALE ADMITTED TO [facility] FROM HOME FOR CAT BITE. NO SIGNIFICANT PAST MEDICAL HX REPORTED. PT REPORTS LAST VISIT WITH PCP 5-10 YRS. SW PROVIDED PT WITH LOW [facility]. PT CURRENTLY UNDERINSURED AND HAS BEEN REFERRED TO [facility]. PT ENCOURAGED TO PROVIDE ALL NECESSARY PAPERWORK REQUESTED IN ORDER TO OBTAIN FULL SCOPE MEDICAL. PATIENT VERBALIZED UNDERSTANDING. PT REPORTS DC PLAN IS TO RETURN HOME WITH HER FAMILY PROVIDING TRANSPORTATION, WHEN MEDICALLY STABLE. Addendum: 12/17/22 at 0841 by Adan PEREZ Amended: Links added.
[2022-12-16 11:56] LABS: PROTHROMBIN TIME 9.5 secs (10.8-13.4)
--- NOTE | 2022-12-16 12:28 | NUR ---
IV ABT GIVEN BY RUFUS DANIELS. TOLERATING WELL.
[2022-12-16] MEDS: HYDROcodone/APAP 7.5/325 MG 1 TAB PO PRN (13:02)
[2022-12-16 13:25] LABS: APPEARANCE,URINE CLEAR (CLEAR); BILIRUBIN,URINE NEGATIVE (NEGATIVE); BLOOD, URINE NEGATIVE (NEGATIVE); COLOR,URINE YELLOW (YELLOW); LEUKOCYTE ESTERASE ,URINE NEGATIVE (NEGATIVE); NITRITE, URINE NEGATIVE (NEGATIVE); PH,URINE 6.5 (5.0-9.0); UGLUCOSE NEGATIVE (NEGATIVE)
[2022-12-16 13:41] LABS: BARBITURATE, URINE NEGATIVE ng/ml (NEG <=200)
[2022-12-16 13:42] LABS: BENZODIAZEPINE, URINE NEGATIVE ng/mL (NEG <=200); CANNABINOID, URINE NEGATIVE ng/mL (NEG <=50); COCAINE, URINE NEGATIVE ng/mL (NEG <=300); OPIATE, URINE POSITIVE ng/mL (NEG <=2000); PHENCYCLIDINE SCREEN,URINE NEGATIVE ng/mL (NEG <=25)
[2022-12-16 16:00] VITALS: BP 96/52
--- NOTE | 2022-12-16 18:06 | NUR ---
IV ABT GIVEN BY RAINA DANIELS. TOLERATING WELL.
--- NOTE | 2022-12-16 19:20 | NUR ---
BEDSIDE REPORT GIVEN TO CONSTANTINE FOR CONTINUITY OF CARE. ENDORSED TO CONSTANTINE PT WILL BE ON NPO AFTER MIDNIGHT. REMAINS STABLE.
[2022-12-16 20:00] VITALS: BP 100/60
[2022-12-16] MEDS ORDERED: VANCOMYCIN PER PHARMACY MC PRN (20:00)
--- NOTE | 2022-12-16 20:43 | NUR ---
PULL UP PT FROM THE BED , O2 SAT 100 %
[2022-12-16] MEDS ORDERED: VANCOMYCIN 1GM/DEXT 5% PREMIX 200 ML IV SCH (21:00)
[2022-12-16] MEDS ORDERED: VANCOMYCIN 1,000 MG VIAL ONE (21:12)
[2022-12-16] MEDS: DOCUSATE SODIUM 100 MG GELCAP PO SCH (21:49)
[2022-12-16] MEDS: ACETAMINOPHEN 325 MG TAB PO PRN (21:50)
--- NOTE | 2022-12-16 22:49 | NUR ---
SLEEPING , BUT EASILY AROUSABLE BY SOUNDS AND TOUCH , O2 SAT 100 % , HR 129 , DENIES PAIN , WILL CONT. TO MONITOR , CALL LIGHT WITHIN REACH Addendum: 12/16/22 at 2250 by Lyubov Bourgeois RN THE ABOVE NURSES NOTE IS AN ERROR ENTRY , WRONG PT - KATHLEEN
[2022-12-17] VITALS: BP 112/60
--- NOTE | 2022-12-17 | NUR ---
SLEEPING BUT EASILY AROUSABLE BY SOUNDS AND TOUCH , DENIES PAIN AT THIS TIME , CALL LIGHT WITHIN REACH , PER ENDORSED TO ME BY AM NURSE PT IS DOWNGRADE TO [facility] .
--- NOTE | 2022-12-17 00:46 | NUR ---
TRANSFER TO 125 BED A , CALL LIGHT WITHIN REACH .
[2022-12-17] MEDS: AMPICILLIN/SULBACTAM 3 GM in NACL 0.9% 100 ML IV SCH ×5 (01:00→23:29)
[2022-12-17 04:00] VITALS: BP 110/65
--- NOTE | 2022-12-17 05:00 | NUR ---
C/O PAIN FACIAL GRIMACING - BP 110/65 , FL 65 , WILL MEDICATE , CALL LIGHT WITHIN REACH .
[2022-12-17] MEDS: MORPHINE SULFATE 2 MG/ML SYR IVP PRN ×2 (05:10→17:58)
[2022-12-17 06:31] LABS: BASOPHILS % (AUTO) 0.5 % (0.0-2.0); EOSINOPHILS # (AUTO) 0.1 K/uL (0-0.4); EOSINOPHILS % (AUTO) 1.3 % (0.0-4.0); HEMATOCRIT 32.4 % (36-48); LYMPHOCYTES % (AUTO) 16.2 % (20.5-51.1); MEAN CORPUSCULAR HEMOGLOBIN 32 pg (27-31); MEAN CORPUSCULAR HGB CONC 34 g/dL (33-37); MEAN CORPUSCULAR VOLUME 94.7 fL (80-94); MONOCYTES # (AUTO) 0.5 K/uL (0.8-1.0); MONOCYTES % (AUTO) 7.7 % (1.7-9.3); NEUTROPHILS # (AUTO) 4.5 K/uL (1.8-7.7); NEUTROPHILS % (AUTO) 74.3 % (42.2-75.2); PLATELET COUNT (AUTO) 180 K/uL (140-450); RED BLOOD CELL COUNT(AUTO) 3.42 MIL/uL (4.20-5.40); RED CELL DISTRIBUTION WIDTH 13.9 % (11.6-13.7); WHITE BLOOD COUNT (AUTO) 6.1 K/uL (4.8-10.8)
--- NOTE | 2022-12-17 07:17 | NUR ---
ENDORSED PT . FOR CONT. OF CARE , CALL LIGHT WITHIN REACH .
[2022-12-17 08:00] VITALS: BP 103/64
[2022-12-17 08:05] LABS: ANION GAP 11.3 (8-16); CARBON DIOXIDE 26.6 mmol/L (21-32); CREATININE 0.6 mg/dL (0.6-1.3); POTASSIUM 3.9 mmol/L (3.5-5.1)
[2022-12-17 08:14] LABS: MAGNESIUM 1.7 mg/dL (1.8-2.4); PHOSPHORUS 2.3 mg/dL (2.5-4.9)
--- NOTE | 2022-12-17 08:45 | NUR ---
WOUND CARE NOTE: PT. ADMITTED WITH CAT BITES TO RIGHT FOREARM, MULTIPLE BITES SOME ARE DRY SCABS. LARGEST WOUND TO RIGHT FOREARM 1X1CM SUPERFICIAL DEPTH WITH THIN SCAB COVER PARTIALLY, LUIS WOUND SKIN THIN, INTACT SWELLING. DR. MARTINEZ AT BED SIDE VISIT, POC DISCUSSED. -CLEANSE RIGHT FOREARM WOUNDS WITH WOUND CARE SOLUTION, PAT DRY, APPLY SILVASORBGEL AND COVER WITH DRY DRESSING QD AND PRN IF SOILING.
[2022-12-17] MEDS: VANCOMYCIN 1,000 MG in DEXTROSE 5% 250 ML IV SCH ×2 (09:23→20:29)
[2022-12-17] MEDS: ACETAMINOPHEN 325 MG TAB PO PRN (09:23)
[2022-12-17] MEDS: PANTOPRAZOLE 40 MG INJ VIAL IVP SCH (09:23)
[2022-12-17] MEDS: DOCUSATE SODIUM 100 MG GELCAP PO SCH ×2 (09:24→20:29)
[2022-12-17] MEDS ORDERED: INSULIN LISPRO SLIDING SCALE 100 UNITS/ML VIAL SUBQ PRN (09:30)
[2022-12-17] MEDS ORDERED: DEXTROSE 50% 50 ML SYR IVP PRN (09:30)
[2022-12-17] MEDS: BLOOD GLUCOSE MONITORING 1 DEV DEV FS SCH ×3 (11:59→20:29)
[2022-12-17 12:00] VITALS: BP 94/47
[2022-12-17 16:00] VITALS: BP 92/40
--- NOTE | 2022-12-17 19:10 | NUR ---
ENDORSED PT TO CONSULTING PRACTICE DIRECTOR NURSE FOR CONTINUITY OF CARE. PT STABLE AT THIS TIME.
[2022-12-17 20:00] VITALS: BP 99/46
--- NOTE | 2022-12-17 20:37 | NUR ---
ASSESSMENT COMPLETED PLAN OF CARE REVIEWED PT NPO AFTER MIDNIGHT FOR POSSIBLE PROCEDURE HEPARIN HELD AT THIS TIME FOR PROCEDURE PT [employer]OAN SPEAKING INTERPRETOR SERVICES USED ID#[id number] PT VERBALIZES UNDERSTANDING OF PLAN OF CARE ALL QUESTIONS ANSWERED PT ENDORSES HE HAS PAIN 6/10 NORCO GIVEN ORDERED PT ASSISSTED TO BR URINATED X1 NO DISTRESS NOTED WILL CONTINUE TO MONITOR AND ASSESS
[2022-12-17] MEDS: NACL 0.9% 1,000 ML IV SCH (22:39)
[2022-12-18] VITALS: BP 95/49
[2022-12-18] MEDS: MORPHINE SULFATE 2 MG/ML SYR IVP PRN ×2 (01:36→18:58)
[2022-12-18 04:00] VITALS: BP 99/59
[2022-12-18] MEDS: AMPICILLIN/SULBACTAM 3 GM in NACL 0.9% 100 ML IV SCH ×3 (05:14→17:06)
[2022-12-18 06:11] LABS: MAGNESIUM 2.1 mg/dL (1.8-2.4); PHOSPHORUS 4.2 mg/dL (2.5-4.9)
[2022-12-18 06:14] LABS: BASOPHILS % (AUTO) 0.8 % (0.0-2.0); EOSINOPHILS # (AUTO) 0.2 K/uL (0-0.4); EOSINOPHILS % (AUTO) 3.5 % (0.0-4.0); HEMATOCRIT 31.2 % (36-48); HEMOGLOBIN 10.7 g/dL (12.0-16.0); LYMPHOCYTES # (AUTO) 1.4 K/uL (2.5-16.5); LYMPHOCYTES % (AUTO) 22.7 % (20.5-51.1); MEAN CORPUSCULAR HEMOGLOBIN 32 pg (27-31); MEAN CORPUSCULAR HGB CONC 34 g/dL (33-37); MEAN CORPUSCULAR VOLUME 92.1 fL (80-94); MONOCYTES # (AUTO) 0.7 K/uL (0.8-1.0); MONOCYTES % (AUTO) 11.8 % (1.7-9.3); NEUTROPHILS # (AUTO) 3.7 K/uL (1.8-7.7); NEUTROPHILS % (AUTO) 61.2 % (42.2-75.2); PLATELET COUNT (AUTO) 168 K/uL (140-450); RED BLOOD CELL COUNT(AUTO) 3.38 MIL/uL (4.20-5.40); RED CELL DISTRIBUTION WIDTH 13.4 % (11.6-13.7)
[2022-12-18 06:20] LABS: ANION GAP 11.2 (8-16); CARBON DIOXIDE 26.8 mmol/L (21-32); CREATININE 0.7 mg/dL (0.6-1.3)
[2022-12-18] MEDS: BLOOD GLUCOSE MONITORING 1 DEV DEV FS SCH ×4 (06:42→21:08)
--- NOTE | 2022-12-18 07:24 | NUR ---
receive the patinet from the material handler 2nd shift rn in rm 125A aox4 kazakh speaking . admitting diagnosis of right arm infection due to cat bite . will continue to monitor .
[2022-12-18 08:00] VITALS: BP 106/57
[2022-12-18] MEDS: VANCOMYCIN 1,000 MG in DEXTROSE 5% 250 ML IV SCH ×2 (09:15→20:50)
[2022-12-18] MEDS: DOCUSATE SODIUM 100 MG GELCAP PO SCH ×2 (09:15→20:50)
[2022-12-18] MEDS: PANTOPRAZOLE 40 MG INJ VIAL IVP SCH (09:15)
[2022-12-18 12:00] VITALS: BP 107/59
--- NOTE | 2022-12-18 13:40 | NUR ---
patient went for computed tomography of right hand . will continue to monitor . still on antibiotics vancomycin , unasyn
[2022-12-18] MEDS: HYDROcodone/APAP 7.5/325 MG 1 TAB PO PRN (15:53)
[2022-12-18 16:00] VITALS: BP 114/53
--- NOTE | 2022-12-18 16:39 | NUR ---
seen by occupational therapist for evaluation . recommended OT tx while patient is here is admiited here in the hospital . with pain meds before trx .
--- NOTE | 2022-12-18 18:35 | NUR ---
on [facility] diet now . will continue for antibiotics to prevent infection . will endorse to bunk house worker rn for continuity of care
--- NOTE | 2022-12-18 19:30 | NUR ---
RECEIVED REPORT FROM DAY SHIFT NURSE STACEY FOR CONTINUITY OF CARE. PATIENT IS A&O X4, BHUTANESE SPEAKING. PATIENT IS ON ROOM AIR, BREATHING IS NORMAL WITH SYMMETRICAL RISE AND FALL OF CHEST. IV IS A 20G LAC, RUNNING NS AT 50. PATIENT HAS CAT BITE TO RIGHT ARM. ARM IS SWOLLEN. PATIENT IS AWAKE, WATCHING TV. BED IS IN LOWEST POSITION, WHEELS LOCKED, CALL LIGHT IN PLACE. WILL CONTINUE TO OBSERVE PATIENT.
[2022-12-18 20:00] VITALS: BP 92/46
[2022-12-18] MEDS: NACL 0.9% 1,000 ML IV SCH (21:15)
[2022-12-19] VITALS: BP 104/44
[2022-12-19] MEDS: AMPICILLIN/SULBACTAM 3 GM in NACL 0.9% 100 ML IV SCH ×3 (00:09→12:02)
[2022-12-19] MEDS: HYDROcodone/APAP 7.5/325 MG 1 TAB PO PRN (01:37)
--- NOTE | 2022-12-19 01:40 | NUR ---
PATIENT CALLED AND REQUESTED PAIN MEDICATION FOR HER ARM. CHECKED PATIENT'S VITALS AND CHART; NORCO WAS APPROPRIATE TO ADMINISTER FOR PAIN. NORCO WAS ADMINISTERED; PATIENT THANKED ME AFTER MEDICATION WAS ADMINISTERED AND LAID HER HEAD BACK DOWN. BREATHING IS NORMAL WITH SYMMETRICAL RISE AND FALL OF CHEST. WILL CONTINUE TO OBSERVE PATIENT.
[2022-12-19 04:00] VITALS: BP 91/46
[2022-12-19] MEDS: NACL 0.9% 1,000 ML IV SCH (04:35)
--- NOTE | 2022-12-19 06:00 | NUR ---
PATIENT SLEPT OFF AND ON THROUGH THE NIGHT. PATIENT'S BREATHING IS NORMAL WITH SYMMETRICAL RISE AND FALL OF CHEST. WILL CONTINUE TO OBSERVE PATIENT.
[2022-12-19 06:07] LABS: BASOPHILS % (AUTO) 0.6 % (0.0-2.0); EOSINOPHILS # (AUTO) 0.2 K/uL (0-0.4); EOSINOPHILS % (AUTO) 3.7 % (0.0-4.0); HEMATOCRIT 30.3 % (36-48); HEMOGLOBIN 10.6 g/dL (12.0-16.0); LYMPHOCYTES # (AUTO) 1.3 K/uL (2.5-16.5); LYMPHOCYTES % (AUTO) 20.4 % (20.5-51.1); MEAN CORPUSCULAR HEMOGLOBIN 31 pg (27-31); MEAN CORPUSCULAR HGB CONC 35 g/dL (33-37); MEAN CORPUSCULAR VOLUME 88.9 fL (80-94); MONOCYTES # (AUTO) 0.7 K/uL (0.8-1.0); MONOCYTES % (AUTO) 11.4 % (1.7-9.3); NEUTROPHILS # (AUTO) 4.1 K/uL (1.8-7.7); NEUTROPHILS % (AUTO) 63.9 % (42.2-75.2); PLATELET COUNT (AUTO) 186 K/uL (140-450); RED BLOOD CELL COUNT(AUTO) 3.41 MIL/uL (4.20-5.40); RED CELL DISTRIBUTION WIDTH 13.2 % (11.6-13.7); WHITE BLOOD COUNT (AUTO) 6.4 K/uL (4.8-10.8)
[2022-12-19] MEDS: BLOOD GLUCOSE MONITORING 1 DEV DEV FS SCH ×2 (06:20→12:03)
[2022-12-19 06:38] LABS: CARBON DIOXIDE 26.8 mmol/L (21-32); CREATININE 0.8 mg/dL (0.6-1.3); POTASSIUM 3.8 mmol/L (3.5-5.1)
[2022-12-19 06:48] LABS: MAGNESIUM 2.1 mg/dL (1.8-2.4); PHOSPHORUS 3.5 mg/dL (2.5-4.9)
--- NOTE | 2022-12-19 07:02 | NUR ---
receive the patient from the shift production supervisor rn in rm 125A aox4 armenian speaking . admitting diagnosis of right hand cellulitis secondary to cat bite . will continue to monitor
--- NOTE | 2022-12-19 07:28 | NUR ---
ENDORSE TO DAY SHIFT NURSE STACEY FOR CONTINUITY OF CARE. PATIENT IS STABLE.
[2022-12-19] MEDS: PANTOPRAZOLE 40 MG INJ VIAL IVP SCH (08:05)
[2022-12-19] MEDS: DOCUSATE SODIUM 100 MG GELCAP PO SCH (08:05)
[2022-12-19] MEDS: VANCOMYCIN 1,000 MG in DEXTROSE 5% 250 ML IV SCH (08:34)
[2022-12-19] MEDS: MORPHINE SULFATE 2 MG/ML SYR IVP PRN (09:23)
--- NOTE | 2022-12-19 09:37 | NUR ---
md mckeon orthopedic doctor discharge the patient on his stand point
[2022-12-19] MEDS ORDERED: AMOX-999 PO (10:16)
[2022-12-19] MEDS ORDERED: HYDR-5080 PO (10:17)
[2022-12-19 12:59] VITALS: BP 125/75
--- NOTE | 2022-12-19 13:00 | NUR ---
discharge the patient to home . to see md mckeon , orthopedic doctor in one week out patient . the rn gave the patient the contact number of the md. remove the id band , iv on the patient . made patinet eachings . puth also the right arm to sling . no complain of pain at this time . no sign and symptoms of shortness of breath brought to the lobby with daughter to a waiting privatr car in a stable condition .
== END 2022-12-19 14:00 | disposition home or self-care (01) | DRG 383 ==
LOC: MED 15:19 → MMU 16:46 → MTU 20:55 → MMU 12-17 02:34
DX: L03.113 Cellulitis of right upper limb (principal); E83.51 Hypocalcemia; E87.6 Hypokalemia; R74.01 Elevation of levels of liver transaminase levels; Z20.822 Contact with and (suspected) exposure to COVID-19; Z90.49 Acquired absence of other specified parts of digestive tract; Y92.9 Unspecified place or not applicable; R71.0 Precipitous drop in hematocrit; Y93.9 Activity, unspecified; W55.01XD Bitten by cat, subsequent encounter; S51.851D Open bite of right forearm, subsequent encounter
CPT/HCPCS: 36415; 71045; 73130; 73200; 80048; 80053; 80202; 80305; 81003; 82150; 82948; 83036; 83605; 83690; 83735; 83880; 84100; 84439; 84443; 84484; 85025; 85610; 85730; 87040; 87070; 87075; 87081; 87086; 93005; 96365; 96375; 97112; 97116; 97163-GP; 97530; 99285; C9113; J0295; J1644; J1815; J1885; J2270; J3370; J7060; Q0092

== ENCOUNTER 2024-03-15 12:29 | Emergency (ER) | payer SELFPAY ==
[~2024-03-15] VITALS: Ht 160 cm; Wt 61.2 kg
[~2024-03-15 12:29] MED LIST changes: -ACET-8905 PO; -DOCU-299 PO; +HYDR-5080 PO; -HYDR-5122 PO; -NAPR-1704 PO; -ONDA4TAB PO
[2024-03-15 13:07] VITALS: BP 118/65; PULSE 59; RESP 15; TEMP 98; O2SAT 100
[2024-03-15] MEDS: ONDANSETRON 4 MG ODT PO ONE (13:47)
[2024-03-15] MEDS: ACETAMINOPHEN 325 MG TAB PO ONE (13:51)
[2024-03-15] MEDS ORDERED: ACET-8905 PO (15:04)
[2024-03-15 15:40] VITALS: BP 113/68; PULSE 59; RESP 12; TEMP 97.7; O2SAT 97
== END 2024-03-15 15:40 | disposition home or self-care (01) ==
LOC: MED 12:29
DX: S11.23XA Puncture wound without foreign body of pharynx and cervical esophagus, initial encounter (principal); S41.032A Puncture wound without foreign body of left shoulder, initial encounter; S01.83XA Puncture wound without foreign body of other part of head, initial encounter; Z72.89 Other problems related to lifestyle; Z79.899 Other long term (current) drug therapy; Z90.49 Acquired absence of other specified parts of digestive tract; W11.XXXA Fall on and from ladder, initial encounter; Y93.89 Activity, other specified; Y92.89 Other specified places as the place of occurrence of the external cause; Y99.8 Other external cause status
CPT/HCPCS: 70450; 72125; 73030; 93005; 99285; Q0162